=== PATIENT | male | born 1985 | race Caucasian/White ===

== ENCOUNTER 2020-02-21 14:27 | Emergency (ER) | payer OTHER ==
[~2020-02-21] VITALS: Ht 188 cm; Wt 80.7 kg
[2020-02-21 14:27] VITALS: BP_SYST 135
--- NOTE | 2020-02-21 14:30 | NUR ---
BROUGHT BACK TO HALLWAY BED AND TRIAGED, REPORT GIVEN TO SHIVAM
--- NOTE | 2020-02-21 14:55 | NUR ---
PT BIB SELF A&Ox3 AMBULATORY UPON ARRIVAL CC SUBSTERNAL NON RADIATING CHEST PAIN PT STATES "IT FEELS LIKE I GOT PUNCHED IN THE CHEST" 2/10 PAIN SINCE 2 HOURS AGO [employer] AT HOME PT BEGAN FEELING CHEST PAIN LIGHT HEADEDNESS AND DIZZNIESS. PT HAS NO MEDICAL HISTORY. PT. HAS AN ALLERGY TO PENICLLIN. PT VITALS WITHIN NORMAL LIMITS WILL CONITNUE TO MONITOR.
--- NOTE | 2020-02-21 14:57 | NUR ---
ED MD GARRETT AT BEDSIDE EXAMINING PT
--- NOTE | 2020-02-21 15:07 | NUR ---
RADIOLOGY AT BEDSIDE TAKING PT TO XRAY
--- NOTE | 2020-02-21 15:10 | NUR ---
PT BACK FROM RADIOLOGY
--- NOTE | 2020-02-21 15:12 | NUR ---
PT AMBULATED TO RESTROOM AND ABLE TO PROVIDE URINE SAMPLE
[2020-02-21] MEDS ORDERED: KETOROLAC TROMETHAMINE 30 MG VIAL ONE (15:21)
[2020-02-21] MEDS: KETOROLAC TROMETHAMINE 30 MG VIAL IVP ONE (15:25)
[2020-02-21 15:39] LABS: BASOPHILS # (AUTO) 0.1 K/uL (0.0-0.2); EOSINOPHILS # (AUTO) 0.2 K/uL (0.0-0.4); EOSINOPHILS % (AUTO) 3.5 % (0.0-4.0); HEMATOCRIT 43.3 % (36-54); LYMPHOCYTES # (AUTO) 1.6 K/uL (1.0-5.5); LYMPHOCYTES % (AUTO) 25.7 % (20.5-51.5); MEAN CORPUSCULAR HEMOGLOBIN 31 pg (27-31); MEAN CORPUSCULAR HGB CONC 35 % (32-36); MEAN CORPUSCULAR VOLUME 91 fL (79.0-98.0); MONOCYTES # (AUTO) 0.5 K/uL (0.0-1.0); MONOCYTES % (AUTO) 7.5 % (1.7-9.3); NEUTROPHILS # (AUTO) 3.8 K/uL (1.8-7.7); NEUTROPHILS % (AUTO) 62.3 % (40.0-70.0); PLATELET COUNT (AUTO) 164 K/uL (130-430); RED BLOOD CELL COUNT(AUTO) 4.76 MIL/uL (4.2-6.2); RED CELL DISTRIBUTION WIDTH 12.1 % (9.0-15.0); WHITE BLOOD COUNT (AUTO) 6.1 K/uL (4.8-10.8)
[2020-02-21 16:32] LABS: CALCIUM 8.8 mg/dL (8.4-11.0); CREATININE 0.95 mg/dL (0.55-1.30); POTASSIUM 3.9 mmol/L (3.5-5.1)
[2020-02-21 16:38] LABS: ALBUMIN 4.4 g/dL (3.4-4.8); TOTAL BILIRUBIN 0.5 mg/dL (0.0-1.0)
[2020-02-21 17:17] VITALS: BP_SYST 135
--- NOTE | 2020-02-21 17:17 | NUR ---
Patient given written and verbal discharge instructions and verbalizes understanding. DR. GERRY WALKER MD discussed with patient the results and treatment provided. Patient in stable condition. ID arm band removed. IV catheter removed intact and dressing applied, no active bleeding. Rx given. Patient educated on pain management and to follow up with PMD. Pain Scale 0/10. Opportunity for questions provided and answered. Medication side effect fact sheet provided.
== END 2020-02-21 17:17 | disposition home or self-care (01) ==
LOC: SED 14:27
DX: R07.89 Other chest pain (principal); Z88.0 Allergy status to penicillin
CPT/HCPCS: 36415; 71045; 80053; 82550; 83880; 84484; 85025; 93005; 96374; 99285; J1885